=== PATIENT | male | born 1970 | race Caucasian/White ===

== ENCOUNTER 2023-11-09 09:15 | Emergency (ER) | payer OTHER, SELFPAY ==
[2023-11-09 09:16] VITALS: BP 124/80
--- NOTE | 2023-11-09 09:44 | ED.GENMED ---
History of Present Illness
General
Chief Complaint: DVT/Possible Blood Clot
Source: patient
Exam Limitations: none
Time Seen by Provider: 11/09/23 09:27
Nursing documentation reviewed up to this point in time: agreed with
Travel History
Have you had any contact with someone who has COVID-19?: No
Do you have any symptoms of coronavirus? Fever > 100 degrees, chills, cough, shortness of breath, sore throat, loss of taste or smell, muscle aches, or headache?: No
History of Present Illness
History of Present Illness:
53-year-old male with a history of oba-ofksrfs-fvswpkiee diabetes, hypertension, hyperlipidemia, obesity presents for right sided lower leg swelling and redness now over the last week. Patient says he had seen his family doctor and had routine lab
work done about 10 days ago. He started noticing some swelling in the leg after that. On 4�19 he called the family doctor's office regarding this patient's blood work which was reportedly 'okay' and he told his doctor over the phone that he was
having the redness and swelling and the doctor said to watch it for couple of days and if it got worse or did not resolve to go to the ER. Patient says he called today and was instructed to come here. He does not have or had an ultrasound of this
leg before, he is never had a blood clot. There is been no recent long travel or surgery or immobility. He has no chest pain or shortness of breath. Patient is also having no fevers or chills
Past History
Past History
ED Past Medical History: COPD
ED Past Surgical History: Cardiac
Social History
Tobacco: Non-smoker
Alcohol: None
Review of Systems
Review of Systems
Allergies reviewed?: Yes
All Other Systems: Not applicable
Phy Exam
Physical Exam
Physical Exam:
GENERAL: Alert , in no apparent distress, elevated BMI
CARDIAC: Regular rate and rhythm .+ edema RLE with some eerythema
LUNGS: Clear breath sounds bilaterally, no acute respiratory distress, no wheezes/rales/rhonchi
ABDOMEN: Soft, without focal tenderness, no r/g, no cvat, normal bowel sounds
NEUROLOGICAL: Alert and oriented, no focal neuro deficits
SKIN: Warm and dry, skin intact.
MUSCULOSKELETAL: Moderate edema to the right lower extremity from distal to the knee down to the foot with erythema of the right lower extremity circumferentially, mild warmth, mild tenderness
Normal strength and sensation, full range of motion of the knee and ankle, normal DP pulse
PSYCH: Normal and appropriate interaction.
Course
Orders/Labs/Results
Orders:
Orders
11/09/23 09:20
Periph Venous Lwr Ext Rt US [US Periph Venous LOWER Ext RT] Urgent
Comment:
Reason For Exam: redness and swelling
11/09/23 10:39
Complete Blood Count/With Diff Urgent
11/09/23 10:57
CeFAZolin 2 GRAM [Ancef] 2 grams in 10 ml IV NOW
11/09/23 11:28
Comprehensive Metabolic Panel Urgent
Abnormal Lab Results
11/09/23 11/09/23
10:39 11:28
MCHC 32.9 L g/dL
(33.0-37.0)
MPV 10.6 H fL
(7.4-10.4)
Carbon Dioxide 31 H mmol/L
(22-30)
Creatinine 0.6 L mg/dL
(0.7-1.3)
Glucose 135 H mg/dl
(70-99)
11/09/23 10:39
11/09/23 11:28
Vital Signs
Initial and Last Documented VS:
Initial Vital Signs
Temp Pulse Resp BP Pulse Ox
98.0 F 85 18 124/80 94
11/09/23 09:16 11/09/23 09:16 11/09/23 09:16 11/09/23 09:16 11/09/23 09:16
Last Documented Vital Signs
Temp Pulse Resp BP Pulse Ox
97.1 F 87 16 126/81 96
11/09/23 12:38 11/09/23 12:38 11/09/23 12:38 11/09/23 12:38 11/09/23 12:38
MDM/Problems Addressed
Differential Diagnosis Includes:
dvt, cellulitis
MDM/Problems Addressed:
53-year-old male with 1 week or so of right lower extremity swelling and redness which has worsened slightly. He has no PE risk factors or DVT risk factors. Patient has no chest pain or shortness of breath. No fevers or chills. No numbness
tingling or weakness. On exam the patient has a circumferential erythema to his right lower extremity moderately red and slightly warm, with some edema and cracking of the skin, some crusts on the posterior aspect of the ankle region
There is no weeping. He has full painless range of motion of the leg, no crepitus
Normal pulse
DVT ultrasound is negative
White count is reassuring
Sugars controlled. Will trial outpatient medication with antibiotics for cellulitis and recommend elevation of the leg. Ancef given prior to discharge, Keflex and Bactrim for outpatient management given the circumferential nature of the leg. I
suspect either staph or strep, he is unlikely to have MRSA
*Critical Care Note
Total Time (30-74mins, 75-104mins- exclusive of procedures): Not Applicable
ED Attending Note
-
Portions of this chart may have been created with voice recognition software.� Occasional wrong word or��sound alike� substitutions may have occurred due to the inherent limitations of voice recognition software.
Discharge Plan
Departure
Patient Disposition: Home (Routine Discharge)
Date of Disposition: 11/09/23
Time of Disposition: 12:16
Patient with high blood pressure during this ER visit?: No
Condition: Fair
Discharge Problem:
Edema, peripheral, Cellulitis of right leg
Instructions: Cellulitis (Skin Infection), Adult (DC)
Prescriptions:
New
cephalexin 500 mg capsule
500 mg PO QID Qty: 40 0RF
sulfamethoxazole-trimethoprim [Bactrim DS] 800-160 mg tablet
1 tab PO BID Qty: 20 0RF
No Action
atorvastatin 40 MG tablet
10 mg PO QPM 30 Days Qty: 30 0RF
amlodipine 5 MG tablet
5 mg PO BID Qty: 60 0RF
aspirin 81 MG tablet,chewable
81 mg PO DAILY Qty: 30 0RF
Referrals:
UNKNOWN - PT DOES,NOT KNOW [Family Provider] -
Activity Restrictions/Additional Instructions:
Your ultrasound was negative for blood clot today. Elevate your leg when you are sitting, you can apply some warm compresses to the skin. It is very important that you watch this redness to make sure it is improving with the antibiotics. Take
Keflex 4 times a day for 7 to 10 days. Take Bactrim 1 tablet twice a day for 7 to 10 days. You can stop at 7 days if it completely resolves.
If you get worsening swelling or redness streaking posterior knee, worsening pain, fever or chills, chest pain or shortness of breath you need to return to the ER immediately.
Otherwise follow-up with your doctor next week
Interventions
Interventions:
*Risk Screen - Suicide Last Done: 11/09/23 12:37
*General Assessment Last Done: 11/09/23 12:37
*Neglect/Abuse Screening Last Done: 11/09/23 12:37
ED- Fall Risk Assessment Last Done: 11/09/23 12:38
*ED COVID-19 Vaccine History Last Done: 11/09/23 09:16
*Nursing Disposition Last Done: 11/09/23 12:38
ED- Cardiac Assessment Last Done: 11/09/23 12:37
ED- Pulmonary Assessment Last Done: 11/09/23 12:37
ED-Peripheral Vascular Assessment Last Done: 11/09/23 12:37
ED-Skin Assessment Last Done: 11/09/23 10:40
Discharge Date and Time
Discharge Date/Time: 11/09/23 12:39
Print Language: URDU
[2023-11-09 10:45] LABS: % Basophils 0.6 % (0-2); % Eosinophils 1.7 % (0-6); % Immature Granulocytes 0.3 % (0-0.5); % Lymphocytes 23.2 % (20.5-51.1); % Monocytes 8.8 % (1.7-9.3); % Neutrophils 65.4 % (42.2-75.2); Absolute Eosinophils 0.1 10^3/uL (0-0.7); Absolute Lymphocytes 1.5 10^3/uL (1.2-3.4); Absolute Monocytes 0.6 10^3/uL (0.1-0.6); Absolute Neutrophils 4.3 10^3/uL (1.4-6.5); Hemoglobin 13.8 g/dL (13.0-18.0); Mean Corp Hgb Conc. 32.9 g/dL (33.0-37.0); Mean Corpuscular Hgb 29.1 pg (27.0-31.0); Mean Corpuscular Volume 88.6 fL (80.0-94.0); Mean Platelet Volume 10.6 fL (7.4-10.4); Nucleated Red Blood Cells % 0 % (-); Platelet Count 152 10^3/uL (130-400); Red Blood Cell Count 4.74 10^6/uL (4.70-6.10); Red Cell Dist. Width 13.3 % (11.5-14.5); White Blood Cell Count 6.6 10^3/uL (4.8-10.8)
[2023-11-09] MEDS: ANCEF 10 IV (11:25)
[2023-11-09 11:35] VITALS: BMI 41.4
[2023-11-09 12:00] LABS: ALT (SGPT) 30 U/L (0-50); AST (SGOT) 28 U/L (17-59); Albumin 3.8 g/dl (3.5-5.0); Alkaline Phosphatase 107 U/L (38-126); Blood Urea Nitrogen 18 mg/dl (9-20); Carbon Dioxide 31 mmol/L (22-30); Chloride 104 mmol/L (98-107); Estimated Creatinine Clearance > 125 ml/min; Glucose 135 mg/dl (70-99); Potassium 4.5 mmol/L (3.5-5.1); Sodium 137 mmol/L (135-145); Total Bilirubin 0.8 mg/dl (0.2-1.3); eGFR > 60.00
[2023-11-09 12:38] VITALS: BP 126/81
== END 2023-11-09 12:39 | disposition home or self-care (01) ==
LOC: EMR 09:15
PROVIDERS: Physician Assistant; EMERGENCY PHYSICIAN Emergency Medicine
DX: L03.115 Cellulitis of right lower limb (principal); M79.89 Other specified soft tissue disorders
CPT/HCPCS: 99284; 96374; 80053; 85025; 93971